=== PATIENT | female | born 1930 | race Caucasian/White ===

== ENCOUNTER 2016-10-21 14:00 | Outpatient (RCR) ==
[2016-07-04 20:32] VITALS: BMI 23.6
--- NOTE | 2016-10-08 14:21 | RS.OPPTEV2 ---
Date of Note: 10/08/16 Visit #: 1 Date of Evaluation: 10/08/16 Payer Source: MEDICARE Date of Onset/Injury/Change in Status: 08/25/16 Surgery Performed?: No Treatment Diagnosis: Gait abnormality History of Condition/Mechanism of Injury:: Pt states she is having loss of balance w/o known reason. This has been happening a couple months and she has fallen several times. Prior Level of Function.....Patient was independent with: ADL's, Self Care, Caregiving, Ambulation/Mobility, Community Integration/Access Functional Limitations: ADL's, Reaching, Pushing, Pulling, Lifting, Carrying, Sitting, Standing, Bending, Squatting, Ambulation, Community Access/Integration Medical History Medical History: Hypertension, CVA/TIA, Arthritis Medical History Comments:: Pt has had a R BILLY, osteoporosis, chronic kidney disease stage III, anemia, depresson, anxiety, low vit D Surgical History: Hip Replacement (Right 11/2014) Surgical History Comments:: Cholecystectomy Smoking Status: Former smoker Hx Home Medications: Dyzide, Lanoxin, Lopressor, Plavix, Vytorin, Aspirin, Osteo -Byflex, Norvasc Functional Outcome Measure Tinetti: 16 (43% disability) - G Codes & Severity Modifier G Codes & Modifier: Mobility: Eval - CK. Goal - CJ Source of G Code score: Tinetti Observation - Observation Inspection: Patient stands with hips and knees flexed bilaterally. Gait - Gait Pattern General Gait Pattern Observation: Weaving Gait, Wide Based Gait, Ataxic Gait, Crouched Gait, Decrease Stride Lngth (R), Decrease Stride Lngth (L) General Range of Motion: Bilateral hamstring length -15 degrees Sensation - Sensation Sensation Description: Pins & Evant (Bilateral feet radiating proximally to mid calves. Numbness to light touch of big toes bilaterlly and decreased discrimnation of bilateral plantar surface of her feet.) Balance - Standing Balance Static Standing Balance: Good Dynamic Standing Balance: Fair (SC is recommended for assistance to decrease falls.) Interventions - Exercise/Activities/Manual Therapy Exercises/Activities: NA Manual Therapy: NA - Charges Total Direct Minutes: 45 Total Treatment Time: 45 Procedures billed for this date of service:: PT Eval (Med) Assessment Assessment: Pt presents with decreased standing balance both static and dynamic and multiple gt deficits causing high fall risk. 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 Patient Education: Education of diagnosis, Body/Joint mechanics, Home Safety ( Recommended use of SC outside and shower chair during bathing.), Education of Plan of Care Short Term Goals Goal #1: Patient independent and compliant in basic HEP. Goal to be met by: 10/25/16 Goal #2: Bilateral hamstring length -10 Goal to be met by: 10/25/16 Goal #3: Tinetti score 19/28 to decrease fall risk. Goal to be met by: 10/25/16 Legal Practice Manager Goals Goal #1: Pt knows HEP & understands the need to continue exercises at home. Goal to be met by: 11/08/16 Goal #2: Score on Tinetti Assessment improved to 23 or more. Goal to be met by: 11/08/16 Goal #3: Patient to amb community distances, with good safety and min. deviations Goal to be met by: 11/08/16 Goal #4: Patient reports 25% improvement in confidence when walking. Goal to be met by: 11/08/16 Plan - Treatment to be Provided Procedures: Therapeutic Exercises, Therapeutic Activity, Gait Training, Neuromuscular Rehab, Manual Therapy, Patient Education Modalities: Hot Packs, No Modalities - Treatment Plan Frequency: 3 X week Duration: 4 weeks ORDER # VISITS AND/OR THROUGH DATE: 11/08/2016 - Treatment Code (1) Ataxia Comments: R27.0
--- NOTE | 2016-10-11 16:22 | RS.OPPTDN ---
Subjective Date of Note: 10/11/16 Visit #: 2 Date of Evaluation: 10/08/16 Payer Source: MEDICARE Treatment Diagnosis: Gait abnormality Current Subjective/complaints:: Patient denies any dizziness today. Says she carries a cane around just to have "something" to hold on to. Pain Assessment - Pain Description Pain Location: hips, buttocks, tail bone area Pain Description: muscle soreness Current Pain Intensity: not rated Interventions - Exercise/Activities/Manual Therapy Exercises/Activities: Begins with Passive gentle stretching to the bilateral heel cords, hamstrings, x 3. She begins general LE strengthening and trunk stability exercises of: pillow squeezes, isometric hip flexion/abd, SAQ 1 1/2# , DF with red tband, bridging. All 2/10 reps. Standing at railing: marching, heel raises, hip abd, and side stepping x 10. Total minutes of Exercise: 36 Manual Therapy: NA HOME EXERCISE PROGRAM: Ankle pumps,quad sets,SAQ,heelslides,SLR's,seated marching,recommended 2-3x/day.Hamstring stretches. - Charges Total Direct Minutes: 36 Total Treatment Time: 36 Procedures billed for this date of service:: ex2 Assessment: Patient presents with straight cane using only to drag at times. She demonstrates good standing bal, fair dynamic balance. She is able to alice all therex well. No LOB or unsteadiness noted with any rail exercise. Patient Education: Education of diagnosis, Body/Joint mechanics, Home Exercise Program, Home Safety, Activity Modification, Education of Plan of Care Short Term Goals Goal #1: Patient independent and compliant in basic HEP. Goal to be met by: 10/25/16 Goal #2: Bilateral hamstring length -10 Goal to be met by: 10/25/16 Goal #3: Tinetti score 19/28 to decrease fall risk. Goal to be met by: 10/25/16 Tie Puller Goals Goal #1: Pt knows HEP & understands the need to continue exercises at home. Goal to be met by: 11/08/16 Goal #2: Score on Tinetti Assessment improved to 23 or more. Goal to be met by: 11/08/16 Goal #3: Patient to amb community distances, with good safety and min. deviations Goal to be met by: 11/08/16 Goal #4: Patient reports 25% improvement in confidence when walking. Goal to be met by: 11/08/16 Plan PLAN OF CARE EXPIRES ON:: 11/08/16 ORDER # VISITS AND/OR THROUGH DATE: 11/08/2016 PLAN: Progress Exercises
--- NOTE | 2016-10-22 14:09 | RS.OPPTDN ---
Subjective Date of Note: 10/22/16 Visit #: 6 Date of Evaluation: 10/08/16 Payer Source: MEDICARE Treatment Diagnosis: Gait abnormality Current Subjective/complaints:: Patient states she is doing fine. Reports exercises seem to be helping her legs. Pain Assessment - Pain Description Pain Location: hips, buttocks, tail bone area Pain Description: muscle soreness Current Pain Intensity: not rated Interventions - Exercise/Activities/Manual Therapy Exercises/Activities: Begins with Passive gentle stretching to the bilateral heel cords, hamstrings, x 3. She continues with general LE strengthening and trunk stability exercises of: pillow squeezes, isometric hip flexion/abd, SAQ 1 1/2#, DF with red tband, pelvic tilts, bridging, alternate LE lift with 1# wand. All 10 reps. Sitting: red tband for scap retraction with therapy bar , 2# stick for bilateral shoulder flexion. All /10. Stationary bike x 5 mins with cues to rotate for/retro. Total minutes of Exercise: 38 Manual Therapy: NA HOME EXERCISE PROGRAM: Ankle pumps,quad sets,SAQ,heelslides,SLR's,seated marching,recommended 2-3x/day.Hamstring stretches. - Charges Total Direct Minutes: 38 Total Treatment Time: 38 Procedures billed for this date of service:: ex3 Assessment: Patient alice all therex well. She appears to be quite steady with using her sc. She drags it for the most part in the department. Patient Education: Education of diagnosis, Body/Joint mechanics, Home Exercise Program, Home Safety, Activity Modification, Education of Plan of Care Patient demonstrates compliance with HEP?: Yes Short Term Goals Goal #1: Patient independent and compliant in basic HEP. Goal to be met by: 10/25/16 Progress towards Goal:: Progressing Goal #2: Bilateral hamstring length -10 Goal to be met by: 10/25/16 Goal #3: Tinetti score to decrease fall risk. Goal to be met by: 10/25/16 Alf Goals Goal #1: Pt knows HEP & understands the need to continue exercises at home. Goal to be met by: 11/08/16 Goal #2: Score on Tinetti Assessment improved to 23 or more. Goal to be met by: 11/08/16 Goal #3: Patient to amb community distances, with good safety and min. deviations Goal to be met by: 11/08/16 Goal #4: Patient reports 25% improvement in confidence when walking. Goal to be met by: 11/08/16 Plan PLAN OF CARE EXPIRES ON:: 11/08/16 ORDER # VISITS AND/OR THROUGH DATE: 11/08/2016 PLAN: Progress Exercises
--- NOTE | 2016-10-22 14:20 | RS.OPPTDN ---
Subjective Date of Note: 10/18/16 Visit #: 5 Date of Evaluation: 10/08/16 Payer Source: MEDICARE Treatment Diagnosis: Gait abnormality Current Subjective/complaints:: Patient offers no c/o's. States she is performing some HEP. Reports no falls. Pain Assessment - Pain Description Pain Location: hips, buttocks, tail bone area Pain Description: muscle soreness Current Pain Intensity: not rated Interventions - Exercise/Activities/Manual Therapy Exercises/Activities: Begins with Passive gentle stretching to the bilateral heel cords, hamstrings, x 3. She begins general LE strengthening and trunk stability exercises of: pillow squeezes, isometric hip flexion/abd, SAQ 1 1/2# , DF with red tband, bridging, alternate LE/UE lift. All 2/10 reps. Sitting: red tband for scap retraction with therapy bar, 2# stick for bilateral shoulder flexion. All 2/10. Standing at railing: marching, heel raises, hip abd, and side stepping 2 x 10. Ambulating backwards 2x8 steps. Total minutes of Exercise: 42 Manual Therapy: NA HOME EXERCISE PROGRAM: Ankle pumps,quad sets,SAQ,heelslides,SLR's,seated marching,recommended 2-3x/day.Hamstring stretches. - Charges Total Direct Minutes: 42 Total Treatment Time: 42 Procedures billed for this date of service:: ex3 Assessment: Patient alice all standing and balance exercises without LOB. She is eager to continue progressing therex. Decreased general back and hip pain. Patient Education: Education of diagnosis, Body/Joint mechanics, Home Exercise Program, Home Safety, Activity Modification, Education of Plan of Care Patient demonstrates compliance with HEP?: Yes Short Term Goals Goal #1: Patient independent and compliant in basic HEP. Goal to be met by: 10/25/16 Progress towards Goal:: Progressing Goal #2: Bilateral hamstring length -10 Goal to be met by: 10/25/16 Progress towards Goal:: Progressing Goal #3: Tinetti score 19/28 to decrease fall risk. Goal to be met by: 10/25/16 Physical Education Instructor Goals Goal #1: Pt knows HEP & understands the need to continue exercises at home. Goal to be met by: 11/08/16 Goal #2: Score on Tinetti Assessment improved to 23 or more. Goal to be met by: 11/08/16 Goal #3: Patient to amb community distances, with good safety and min. deviations Goal to be met by: 11/08/16 Goal #4: Patient reports 25% improvement in confidence when walking. Goal to be met by: 11/08/16 Plan PLAN OF CARE EXPIRES ON:: 11/08/16 ORDER # VISITS AND/OR THROUGH DATE: 11/08/2016 PLAN: Progress Exercises
--- NOTE | 2016-10-22 14:27 | RS.OPPTDN ---
Subjective Date of Note: 10/16/16 Visit #: 4 Date of Evaluation: 10/08/16 Payer Source: MEDICARE Treatment Diagnosis: Gait abnormality Current Subjective/complaints:: Patient says she is doing well. REports no falls. She says she feels stronger and her knees are not as sore. Pain Assessment - Pain Description Pain Location: hips, buttocks, tail bone area Pain Description: muscle soreness Current Pain Intensity: not rated Interventions - Exercise/Activities/Manual Therapy Exercises/Activities: Begins with Passive gentle stretching to the bilateral heel cords, hamstrings, x 3. She begins general LE strengthening and trunk stability exercises of: pillow squeezes, isometric hip flexion/abd, SAQ 1 1/2# , DF with red tband, bridging. All 2/10 reps. Sitting: red tband for scap retraction with therapy bar, 2# stick for bilateral shoulder flexion. All 2/ 10. Standing at railing: marching, heel raises, hip abd, and side stepping x 10. Stationary bike x 3 mins. Cues for changing positions for/retro. Total minutes of Exercise: 38 Manual Therapy: NA HOME EXERCISE PROGRAM: Ankle pumps,quad sets,SAQ,heelslides,SLR's,seated marching,recommended 2-3x/day.Hamstring stretches. - Charges Total Direct Minutes: 38 Total Treatment Time: 38 Procedures billed for this date of service:: ex3 Assessment: Decreased pain to bilateral knees with therex. She appears to alice all well today with continued tightness to bilateral HS. Patient Education: Education of diagnosis, Body/Joint mechanics, Home Exercise Program, Home Safety, Activity Modification, Education of Plan of Care Short Term Goals Goal #1: Patient independent and compliant in basic HEP. Goal to be met by: 10/25/16 Goal #2: Bilateral hamstring length -10 Goal to be met by: 10/25/16 Goal #3: Tinetti score 19/28 to decrease fall risk. Goal to be met by: 10/25/16 Skilled Nursing Goals Goal #1: Pt knows HEP & understands the need to continue exercises at home. Goal to be met by: 11/08/16 Goal #2: Score on Tinetti Assessment improved to 23 or more. Goal to be met by: 11/08/16 Goal #3: Patient to amb community distances, with good safety and min. deviations Goal to be met by: 11/08/16 Goal #4: Patient reports 25% improvement in confidence when walking. Goal to be met by: 11/08/16 Plan PLAN OF CARE EXPIRES ON:: 11/08/16 ORDER # VISITS AND/OR THROUGH DATE: 11/08/2016 PLAN: Progress Exercises
--- NOTE | 2016-10-22 14:30 | RS.OPPTDN ---
Subjective Date of Note: 10/14/16 Visit #: 3 Date of Evaluation: 10/08/16 Payer Source: MEDICARE Treatment Diagnosis: Gait abnormality Current Subjective/complaints:: No c/o's. She says she does not have any difficulty with therex today. She hopes exercises will help her knees and hips. Says she mainly just drags her cane. Pain Assessment - Pain Description Pain Location: hips, buttocks, tail bone area Pain Description: muscle soreness Current Pain Intensity: not rated Interventions - Exercise/Activities/Manual Therapy Exercises/Activities: Begins with Passive gentle stretching to the bilateral heel cords, hamstrings, x 3. She begins general LE strengthening and trunk stability exercises of: pillow squeezes, isometric hip flexion/abd, SAQ 1 1/2# , DF with red tband, bridging. All 2/10 reps. Standing at railing: marching, heel raises, hip abd. Total minutes of Exercise: 38 Manual Therapy: NA HOME EXERCISE PROGRAM: Ankle pumps,quad sets,SAQ,heelslides,SLR's,seated marching,recommended 2-3x/day.Hamstring stretches. - Charges Total Direct Minutes: 38 Total Treatment Time: 38 Procedures billed for this date of service:: ex3 Patient Education: Education of diagnosis, Body/Joint mechanics, Home Exercise Program, Home Safety, Activity Modification, Education of Plan of Care Short Term Goals Goal #1: Patient independent and compliant in basic HEP. Goal to be met by: 10/25/16 Progress towards Goal:: Progressing Goal #2: Bilateral hamstring length -10 Goal to be met by: 10/25/16 Goal #3: Tinetti score 19/28 to decrease fall risk. Goal to be met by: 10/25/16 [facility] Goals Goal #1: Pt knows HEP & understands the need to continue exercises at home. Goal to be met by: 11/08/16 Goal #2: Score on Tinetti Assessment improved to 23 or more. Goal to be met by: 11/08/16 Goal #3: Patient to amb community distances, with good safety and min. deviations Goal to be met by: 11/08/16 Goal #4: Patient reports 25% improvement in confidence when walking. Goal to be met by: 11/08/16 Plan PLAN OF CARE EXPIRES ON:: 11/08/16 ORDER # VISITS AND/OR THROUGH DATE: 11/08/2016 PLAN: Continue Plan of Care
== END 2016-10-22 ==
PROVIDERS: ATTEND Family Medicine
DX: R26.9 Unspecified abnormalities of gait and mobility (principal)

== ENCOUNTER 2016-10-30 14:00 | Outpatient (RCR) ==
[2016-07-04 20:32] VITALS: BMI 23.6
--- NOTE | 2016-10-23 16:35 | RS.OPPTDN ---
Subjective Date of Note: 10/23/16 Visit #: 7 Date of Evaluation: 10/08/16 Payer Source: MEDICARE Treatment Diagnosis: Gait abnormality Current Subjective/complaints:: Patient says she no longer has the tingling into her legs and feet like she had before starting therapy. She says the knee soreness is also much better. Pain Assessment - Pain Description Pain Location: Very little soreness to the knees Pain Description: joints in general Current Pain Intensity: not rated Interventions - Exercise/Activities/Manual Therapy Exercises/Activities: Continues to receive Passive gentle stretching to the bilateral heel cords, hamstrings, x 3. She begins general LE strengthening and trunk stability exercises of: pillow squeezes, isometric hip flexion/abd, SAQ 1 1/2#, DF with red tband, bridging, Alternate LE lift 2 1/2# each, hip abd in hooklying with red tband. All 2/10 reps. Sitting: Red tband for scapular retraction 2/10, shoulder shrugs x 10. Stationary bike x 6 mins for/retro. Total minutes of Exercise: 38 Manual Therapy: NA HOME EXERCISE PROGRAM: Ankle pumps,quad sets,SAQ,heelslides,SLR's,seated marching,recommended 2-3x/day.Hamstring stretches. - Charges Total Direct Minutes: 38 Total Treatment Time: 38 Procedures billed for this date of service:: ex3 Assessment: Patient has decreased pain to bilateral knees and decreased tingling and numbness to bilateral LE's extending to the feet. She demonstrates good balance with all standing therex. No falls to date since Eval. Patient Education: Education of diagnosis, Body/Joint mechanics, Home Exercise Program, Home Safety, Activity Modification, Education of Plan of Care Patient demonstrates compliance with HEP?: Yes Short Term Goals Goal #1: Patient independent and compliant in basic HEP. Goal to be met by: 10/25/16 Progress towards Goal:: Progressing Goal #2: Bilateral hamstring length -10 Goal to be met by: 10/25/16 Progress towards Goal:: Progressing Goal #3: Tinetti score 19/28 to decrease fall risk. Goal to be met by: 10/25/16 [employer] Plant Construction Worker Goals Goal #1: Pt knows HEP & understands the need to continue exercises at home. Goal to be met by: 11/08/16 Goal #2: Score on Tinetti Assessment improved to 23 or more. Goal to be met by: 11/08/16 Goal #3: Patient to amb community distances, with good safety and min. deviations Goal to be met by: 11/08/16 Goal #4: Patient reports 25% improvement in confidence when walking. Goal to be met by: 11/08/16 Plan PLAN OF CARE EXPIRES ON:: 11/08/16 ORDER # VISITS AND/OR THROUGH DATE: 11/08/2016 PLAN: Progress Exercises (x 3 more sessions)
--- NOTE | 2016-10-28 15:20 | RS.OPPTDN ---
Subjective Date of Note: 10/25/16 Visit #: 8 Date of Evaluation: 10/08/16 Payer Source: MEDICARE Treatment Diagnosis: Gait abnormality Current Subjective/complaints:: Patient says she is doing better with balance and knee pain. Pain Assessment - Pain Description Pain Location: Very little soreness to the knees Pain Description: joints in general Current Pain Intensity: not rated Interventions - Exercise/Activities/Manual Therapy Exercises/Activities: Continues to receive Passive gentle stretching to the bilateral heel cords, hamstrings, x 3. She begins general LE strengthening and trunk stability exercises of: pillow squeezes, isometric hip flexion/abd, SAQ 1 1/2#, DF with red tband, bridging, Alternate LE lift 2 1/2# each, hip abd in hooklying with red tband. All 2/10 reps. Sitting: Red tband for scapular retraction 2/10, 1# wand for bilateral shoulder flexion, shoulder shrugs x 10. Stationary bike x 6 mins for/retro. At railing: side stepping, backwards walking, marching and heel raises x 10. Total minutes of Exercise: 45 Manual Therapy: NA HOME EXERCISE PROGRAM: Ankle pumps,quad sets,SAQ,heelslides,SLR's,seated marching,recommended 2-3x/day.Hamstring stretches. - Charges Total Direct Minutes: 45 Total Treatment Time: 45 Procedures billed for this date of service:: ex3 Assessment: Patient progressing well with all therex. Bal maintained throughout standing therex, but ambulated out of the department with slight unsteadiness. Patient Education: Education of diagnosis, Body/Joint mechanics, Home Exercise Program, Home Safety, Activity Modification, Education of Plan of Care Patient demonstrates compliance with HEP?: Yes Short Term Goals Goal #1: Patient independent and compliant in basic HEP. Goal to be met by: 10/25/16 Progress towards Goal:: Progressing Goal #2: Bilateral hamstring length -10 Goal to be met by: 10/25/16 Progress towards Goal:: Progressing Goal #3: Tinetti score 19/28 to decrease fall risk. Goal to be met by: 10/25/16 [facility] Goals Goal #1: Pt knows HEP & understands the need to continue exercises at home. Goal to be met by: 11/08/16 Goal #2: Score on Tinetti Assessment improved to 23 or more. Goal to be met by: 11/08/16 Goal #3: Patient to amb community distances, with good safety and min. deviations Goal to be met by: 11/08/16 Goal #4: Patient reports 25% improvement in confidence when walking. Goal to be met by: 11/08/16 Plan PLAN OF CARE EXPIRES ON:: 11/08/16 ORDER # VISITS AND/OR THROUGH DATE: 11/08/2016 PLAN: Progress Exercises
--- NOTE | 2016-10-30 15:55 | RS.OPPTDN ---
Subjective Date of Note: 10/28/16 Visit #: 9 Date of Evaluation: 10/08/16 Payer Source: MEDICARE Treatment Diagnosis: Gait abnormality Current Subjective/complaints:: Patient says her feet and knees are feeling better. Pain Assessment - Pain Description Pain Location: Very little soreness to the knees Pain Description: joints in general Current Pain Intensity: not rated Interventions - Exercise/Activities/Manual Therapy Exercises/Activities: Continues to receive Passive gentle stretching to the bilateral heel cords, hamstrings, x 3. She begins general LE strengthening and trunk stability exercises of: pillow squeezes, isometric hip flexion/abd, SAQ 1 1/2#, DF with red tband, bridging, Alternate LE lift 2 1/2# each, hip abd in hooklying with red tband. All 2/10 reps. Sitting: Red tband for scapular retraction 10/04, 1# wand for bilateral shoulder flexion, shoulder shrugs x 10. Stationary bike x 6 mins for/retro. At railing: side stepping, backwards walking, marching and heel raises x 10. Total minutes of Exercise: 40 Manual Therapy: NA HOME EXERCISE PROGRAM: Ankle pumps,quad sets,SAQ,heelslides,SLR's,seated marching,recommended 2-3x/day.Hamstring stretches. - Charges Total Direct Minutes: 40 Total Treatment Time: 40 Procedures billed for this date of service:: ex3 Assessment: Patient progressing with all therex showing improved bal and pain to knees and feet (sensation). Patient Education: Education of diagnosis, Body/Joint mechanics, Home Exercise Program, Home Safety, Activity Modification, Education of Plan of Care Patient demonstrates compliance with HEP?: Yes Short Term Goals Goal #1: Patient independent and compliant in basic HEP. Goal to be met by: 10/25/16 Progress towards Goal:: Progressing Goal #2: Bilateral hamstring length -10 Goal to be met by: 10/25/16 Progress towards Goal:: Progressing Goal #3: Tinetti score 19/28 to decrease fall risk. Goal to be met by: 10/25/16 [facility] Goals Goal #1: Pt knows HEP & understands the need to continue exercises at home. Goal to be met by: 11/08/16 Goal #2: Score on Tinetti Assessment improved to 23 or more. Goal to be met by: 11/08/16 Goal #3: Patient to amb community distances, with good safety and min. deviations Goal to be met by: 11/08/16 Goal #4: Patient reports 25% improvement in confidence when walking. Goal to be met by: 11/08/16 Plan PLAN OF CARE EXPIRES ON:: 11/08/16 ORDER # VISITS AND/OR THROUGH DATE: 11/08/2016 PLAN: Progress Exercises (attend one more session per order)
--- NOTE | 2016-10-30 16:08 | RS.OPPTDN ---
Subjective Date of Note: 10/30/16 Visit #: 10 Date of Evaluation: 10/08/16 Payer Source: MEDICARE Treatment Diagnosis: Gait abnormality Current Subjective/complaints:: Patient says she has not had any back pain in the past few sessions. She says she is pleased at how well she has done in therapy. She says she performs some HEP and it is easier than when she first began. Pain Assessment - Pain Description Pain Location: None to the back or knees today. Improved sensation to the feet. Pain Description: joints in general Current Pain Intensity: not rated Interventions - Exercise/Activities/Manual Therapy Exercises/Activities: Continues to receive Passive gentle stretching to the bilateral heel cords, hamstrings, x 3. She begins general LE strengthening and trunk stability exercises of: pillow squeezes, isometric hip flexion/abd, SAQ 1 1/2#, DF with red tband, bridging, Alternate LE lift 2 1/2# each, hip abd in hooklying with red tband. All 2/10 reps. Sitting: Red tband for scapular retraction 2/10, 1# wand for bilateral shoulder flexion, shoulder shrugs x 10. Performed Tinetti's Assessment. Total minutes of Exercise: 40 Manual Therapy: NA HOME EXERCISE PROGRAM: Ankle pumps,quad sets,SAQ,heelslides,SLR's,seated marching,recommended 2-3x/day.Hamstring stretches. - Objective Findings Observations,measurements,etc.: 20/28 or 29% impairment for Tinetti compared to 16/28 or 43% at eval - Charges Total Direct Minutes: 40 Total Treatment Time: 40 Procedures billed for this date of service:: ex3 Assessment: Improved Tinetti's score, self reports of improvement with back and knee pain as well as sensation to both feet. She does not appear to "depend" on her cane, just drags or uses very seldomly on uneven terrain or outside. She is performing light yard work without the cane as well. Patient Education: Education of diagnosis, Body/Joint mechanics, Home Exercise Program, Home Safety, Activity Modification, Education of Plan of Care Patient demonstrates compliance with HEP?: Yes Short Term Goals Goal #1: Patient independent and compliant in basic HEP. Goal to be met by: 10/25/16 Progress towards Goal:: Met Goal #2: Bilateral hamstring length -10 Goal to be met by: 10/25/16 Progress towards Goal:: Met Goal #3: Tinetti score to decrease fall risk. Goal to be met by: 10/25/16 Progress towards Goal:: Met () Assisted Goals Goal #1: Pt knows HEP & understands the need to continue exercises at home. Goal to be met by: 11/08/16 Progress towards goal: Met Goal #2: Score on Tinetti Assessment improved to 23 or more. Goal to be met by: 11/08/16 Progress towards goal: Progressing Goal #3: Patient to amb community distances, with good safety and min. deviations Goal to be met by: 11/08/16 Progress towards goal: Met Goal #4: Patient reports 25% improvement in confidence when walking. Goal to be met by: 11/08/16 Progress towards goal: Met Plan PLAN OF CARE EXPIRES ON:: 11/08/16 ORDER # VISITS AND/OR THROUGH DATE: 11/08/2016 PLAN: Plan for Discharge
--- NOTE | 2016-10-31 09:05 | RS.OPPTDC ---
Date of Discharge: 10/30/16 Date of Evaluation: 10/08/16 Number of Visits: 10 Treatment Diagnosis: Gait abnormality Current Complaints/Gains: Patient reports being pleased with her progress. She requests D/C to perform HEP on her own. Pain Assessment - Pain Description Pain Location: None to the back or knees today. Improved sensation to the feet. Pain Description: joints in general Current Pain Intensity: not rated Functional Outcome Measure Tinetti: 20 - G Codes & Severity Modifier G Codes & Modifier: Mobility, Moving & Walking Around: Goal - CJ. D/C - CJ Source of G Code score: Tinetti Balance & Gait Assessment Interventions - Exercise/Activities/Manual Therapy Exercises/Activities: NA Manual Therapy: NA - Charges Total Direct Minutes: na Total Treatment Time: na Procedures billed for this date of service:: na Assessment Assessment: Pt made excellent progress and back pain completely resolved as well as reported return of sensation. Short Term Goals Goal #1: Patient independent and compliant in basic HEP. Goal to be met by: 10/25/16 Progress towards Goal:: Met Goal #2: Bilateral hamstring length -10 Goal to be met by: 10/25/16 Progress towards Goal:: Met Goal #3: Tinetti score 19/28 to decrease fall risk. Goal to be met by: 10/25/16 Progress towards Goal:: Met () Stapler Coil Unit Goals Goal #1: Pt knows HEP & understands the need to continue exercises at home. Goal to be met by: 11/08/16 Progress towards goal: Met Goal #2: Score on Tinetti Assessment improved to 23 or more. Goal to be met by: 11/08/16 Progress towards goal: Progressing Goal #3: Patient to amb community distances, with good safety and min. deviations Goal to be met by: 11/08/16 Progress towards goal: Met Goal #4: Patient reports 25% improvement in confidence when walking. Goal to be met by: 11/08/16 Progress towards goal: Met Plan Reason for Discharge:: Self-Discharge (Pt chose to stop PT at this time due to lack of progress.)
== END 2016-11-22 ==
PROVIDERS: ATTEND Family Medicine
DX: R26.9 Unspecified abnormalities of gait and mobility (principal)

== ENCOUNTER 2017-05-26 07:52 | Day surgery (SDC) | payer OTHER ==
[2016-07-04 20:32] VITALS: BMI 23.6
[2017-05-26] MEDS ORDERED: VERSED ONE (09:55)
[2017-05-26] MEDS ORDERED: DIPRIVAN 20 ML VIAL IVP ONE (09:55)
[2017-05-26 15:16] VITALS: BP 141/61; TEMP 97.8
--- NOTE | 2017-05-27 12:51 | OP ---
PROCEDURE: EGD (ESOPHAGOGASTRODUODENOSCOPY) WITH SALINAS DILATATION. ENDOSCOPIST: Arelis CUMMINS M.D. INDICATION: DYSPHAGIA. INSTRUMENT: GIFH-190. MEDICATION: PER ANESTHESIA. PROCEDURE: The patient was positioned for endoscopy. The oropharynx was sprayed with Cetacaine spray and the endoscope was advanced through the bite block into the esophagus and from there advanced to the duodenum. The duodenum is normal and pylorus is patent. The antrum reveals some mild gastritis. Retroflex exam was otherwise normal. The esophagus was essentially normal. Mild distal esophageal ring. The scope was withdrawn and a 44 [place] was passed without difficulty. The patient tolerated the procedure without immediate complication. PLAN: 1. Repeat as needed. MTDD
--- NOTE | 2017-05-27 12:54 | OP ---
PROCEDURE: COLONOSCOPY TO THE CECUM. ENDOSCOPIST: Arelis CUMMINS M.D. INDICATION: ANEMIA INSTRUMENT: PCFH-190. MEDICATION: PER ANESTHESIA. PROCEDURE: The patient was positioned for colonoscopy. The digital rectal exam was negative. The colonoscope was inserted through the anus and advanced to the cecum. The cecum was identified using the ileocecal valve and the appendiceal orifice as landmarks. The scope was slowly withdrawn through an adequately prepped colon. Careful inspection was made of each colonic segment as the scope is withdrawn in a circumferential fashion. Care was taken to inspect the proximal side of the ileocecal valve, haustral folds, flexures and rectal valves. No evidence for inflammatory change, polyp or mass. A few diverticula are noted. Retroflex exam was otherwise negative. The patient tolerated the procedure well without immediate complication. Withdrawal time 6 minutes and 28 seconds. PLAN: 1. Suggest repeat colonoscopy as needed. MTDMarquise
== END 2017-05-26 11:25 | disposition home or self-care (01) ==
LOC: SURG 07:52
PROVIDERS: ATTEND Internal Medicine Gastroenterology
DX: D64.9 Anemia, unspecified (principal); R13.10 Dysphagia, unspecified; K57.30 Diverticulosis of large intestine without perforation or abscess without bleeding; K29.70 Gastritis, unspecified, without bleeding; K22.2 Esophageal obstruction

== ENCOUNTER 2017-10-12 22:54 | Outpatient (CLI) ==
[2017-10-12 23:21] VITALS: BMI 23.3
== END 2017-10-12 22:55 | disposition left against medical advice (07) ==
LOC: AMBL 22:54
PROVIDERS: ATTEND Internal Medicine Geriatric Medicine
DX: R06.02 Shortness of breath (principal); J44.9 Chronic obstructive pulmonary disease, unspecified

== ENCOUNTER 2017-10-12 23:07 | Emergency (ER) ==
[2017-10-12 23:21] VITALS: BP 131/73; TEMP 98.9; BMI 23.3
[2017-10-12] MEDS ORDERED: DUONEB NEB STA (23:45)
[2017-10-12] MEDS ORDERED: SOLU-MEDROL 125 MG IVP STA (23:45)
--- NOTE | 2017-10-12 23:46 | ED.PDOC ---
General ED Provider: Dr. MIKE ALLEN Chief Complaint: Shortness of Air Stated Complaint: Patient states she has been feeling short of breath for the last 3 days. His is unusual for her despite having a history of COPD per her physiciain. Denies any cough or chest pain. She states she gets worn our after talking for a while and if she walks only few steps. Time Seen by Physician: 23:43 Mode of Arrival: Walk-In Information Source: Patient Exam Limitations: No limitations Primary Care Provider: YEIMY ROTH Nursing and Triage Documentation Reviewed and Agree: Yes Reviewed sepsis parameters & appropriate labs ordered?: No System Inflammatory Response Syndrome: Not Applicable Sepsis Protocol: For patient's 13 years and over: Temp is 96.8 and below OR 101 and greater Pulse >90 BPM Resp >20/minute Acutely Altered Mental Status Are patient's symptoms suggestive of a new infection, such as: -Pneumonia -Skin, Soft Tissue -Endocarditis -UTI -Bone, Joint Infection -Implantable Device -Acute Abdominal Infection -Wound Infection -Meningitis -Blood Stream Catheter Infection -Unknown System Inflammatory Response Syndrome: Not Applicable Review of Systems - Review Of Systems Constitutional: Reports: No symptoms Eyes: Reports: No symptoms Ears, Nose, Mouth, Throat: Reports: No symptoms Respiratory: Reports: Short of air Cardiac: Reports: No symptoms GI: Reports: No symptoms : Reports: No symptoms Musculoskeletal: Reports: No symptoms Skin: Reports: No symptoms Neurological: Reports: Anxiety Endocrine: Reports: No symptoms Hematologic/Lymphatic: Reports: No symptoms All Other Systems: Reviewed and Negative Past Medical History - Past Medical History Previously Healthy: Yes Endocrine: Reports: Hypothyroid Cardiovascular: Reports: Hypertension Respiratory: Reports: COPD Hematological: Reports: None Gastrointestinal: Reports: None Genitourinary: Reports: None Neuro/Psych: Reports: None Musculoskeletal: Reports: Arthritis Cancer: Reports: None Last Menstrual Period: post menopausal - Surgical History General Surgical History: Reports: Appendectomy, Cholecystectomy, Orthopedic ( hip replacement in 2015 , Carpal Tunnel both wrist ), Unknown - Family History Family History: Reports: Unknown - Social History Smoking Status: Former smoker Hx Substance Use: No Alcohol Screening: None - Immunizations Tetanus Shot up to Date: No (unsure) Physical Exam - Physical Exam Appearance: Ill-appearing, Thin Ill-appearing: Mild Neck: Supple Respiratory: Breath sounds diminished Cardiovascular: RRR, Pulses normal, No rub, No murmur GI/: Soft, Nontender, No masses, Bowel sounds normal, No Organomegaly Musculoskeletal: Normal strength, ROM intact, No edema, No calf tenderness Skin: Warm, Dry, Normal color Neurological: Sensation intact, Motor intact, Reflexes intact, Cranial nerves intact, Alert, Oriented Psychiatric: Anxious Interpretation - Radiology Interpretation Radiology Interpretation By: ED Physician Radiology Results: Negative Exam Interpreted: Portable CXR Radiology Interpretation By: Radiologist Radiology Results: Positive Exam Interpreted: CT Scan (Pulmonary embolus Multi lobar Bilateral. ) - EKG Interpretation Time of EKG #1: 00:32 Rate: Normal Rhythm: Sinus Ectopy: None [place]: NL Interpretation: non specific st-t changes. Critical Care Note - Critical Care Note Total Time (mins): 40 Course - Course Hematology/Chemistry: 10/12/17 23:50 10/12/17 23:50 Orders, Labs, Meds: Lab Review 10/12/17 10/12/17 10/12/17 23:42 23:50 23:50 WBC 12.32 H RBC 3.97 L Hgb 12.5 Hct 36.7 L MCV 92.4 MCH 31.5 H MCHC 34.1 RDW Coeff of Lori 12.7 Plt Count 262 Immature Gran % (Auto) 0.2 Neut % (Auto) 66.2 Lymph % (Auto) 22.8 Martin % (Auto) 8.5 Eos % (Auto) 2.0 Baso % (Auto) 0.3 Immature Gran # (Auto) 0.0 Neut # 8.1 H Lymph # 2.8 Martin # 1.1 Eos # 0.3 Baso # 0.0 D-Dimer (Manual) Puncture Site Rr O2 Saturation 97.0 ABG pH 7.549 H* ABG pCO2 25.2 L ABG pO2 72.0 L ABG HCO3 22 ABG Total CO2 23 ABG Base Excess 0 Goyo Test + FiO2 % 21.0 Sodium 137 Potassium 3.9 Chloride 103 Carbon Dioxide 21 L Anion Gap 16.9 BUN 20 H Creatinine 0.98 Estimated GFR (MDRD) 54.00 BUN/Creatinine Ratio 20.40 Glucose 108 Lactic Acid Calcium 10.2 Total Bilirubin 0.6 AST 19 ALT 15 Alkaline Phosphatase 92 Total Creatine Kinase 104 Troponin I 0.0890 B-Natriuretic Peptide Total Protein 7.9 Albumin 3.7 Globulin 4.2 Albumin/Globulin Ratio 0.88 Procalcitonin 10/12/17 10/12/17 10/12/17 23:50 23:50 23:50 WBC RBC Hgb Hct MCV MCH MCHC RDW Coeff of Lori Plt Count Immature Gran % (Auto) Neut % (Auto) Lymph % (Auto) Martin % (Auto) Eos % (Auto) Baso % (Auto) Immature Gran # (Auto) Neut # Lymph # Martin # Eos # Baso # D-Dimer (Manual) Puncture Site O2 Saturation ABG pH ABG pCO2 ABG pO2 ABG HCO3 ABG Total CO2 ABG Base Excess Goyo Test FiO2 % Sodium Potassium Chloride Carbon Dioxide Anion Gap BUN Creatinine Estimated GFR (MDRD) BUN/Creatinine Ratio Glucose Lactic Acid 10.4 Calcium Total Bilirubin AST ALT Alkaline Phosphatase Total Creatine Kinase Troponin I B-Natriuretic Peptide 81 Total Protein Albumin Globulin Albumin/Globulin Ratio Procalcitonin < 0.05 10/12/17 23:50 WBC RBC Hgb Hct MCV MCH MCHC RDW Coeff of Lori Plt Count Immature Gran % (Auto) Neut % (Auto) Lymph % (Auto) Martin % (Auto) Eos % (Auto) Baso % (Auto) Immature Gran # (Auto) Neut # Lymph # Martin # Eos # Baso # D-Dimer (Manual) 5423.31 Puncture Site O2 Saturation ABG pH ABG pCO2 ABG pO2 ABG HCO3 ABG Total CO2 ABG Base Excess Goyo Test FiO2 % Sodium Potassium Chloride Carbon Dioxide Anion Gap BUN Creatinine Estimated GFR (MDRD) BUN/Creatinine Ratio Glucose Lactic Acid Calcium Total Bilirubin AST ALT Alkaline Phosphatase Total Creatine Kinase Troponin I B-Natriuretic Peptide Total Protein Albumin Globulin Albumin/Globulin Ratio Procalcitonin Orders Category Date Time Status ABG DRAW REQUEST Stat CARDIO 10/12/17 23:43 Completed EKG-(ED ONLY) Stat CARDIO 10/12/17 23:33 Completed NEBULIZER TREATMENT Stat CARDIO 10/12/17 23:45 Completed NPO REMINDER: IMAGING ONCE CARE 10/13/17 00:56 Completed ED IV/MEDIPORT/POWERPORT .ONCE EMERGENCY 10/12/17 23:45 Active OXYGEN [ED APPLY O2] .ONCE EMERGENCY 10/13/17 02:17 Active ABG Stat LAB 10/12/17 23:42 Completed BLOOD CULTURE Stat LAB 10/12/17 23:50 Results BNP [B-TYPE NATRIURETIC PEPTIDE] Stat LAB 10/12/17 23:50 Completed CBC W/ AUTO DIFF Stat LAB 10/12/17 23:50 Completed COMPREHENSIVE METABOLIC PANEL Stat LAB 10/12/17 23:50 Completed CREATINE KINASE Stat LAB 10/12/17 23:50 Completed D-DIMER Stat LAB 10/12/17 23:50 Completed LACTIC ACID Stat LAB 10/12/17 23:50 Completed PROCALCITONIN Stat LAB 10/12/17 23:50 Completed TROPONIN I Stat LAB 10/12/17 23:50 Completed 0.9 % Sodium Chloride [Saline Flush] MEDS 10/12/17 23:45 Discontinued 1 syr IVF PRN PRN Enoxaparin Sodium [Lovenox] MEDS 10/13/17 01:45 Discontinued 65 mg SUBCUT ONCE STA Ipratropium/Albuterol Neb [Duoneb] MEDS 10/12/17 23:45 Discontinued 1 vial NEB ONCE STA Methylprednisolone Sod Succ/Pf [Solu-Medrol 125 mg] MEDS 10/12/17 23:45 Discontinued 125 mg IVP ONCE STA Sodium Chloride 0.9% [Sodium Chloride] 1,000 ml MEDS 10/13/17 01:07 Discontinued IV BOLUS CHEST, 1V AP ONLY Stat RADS 10/12/17 23:[address] CHEST PE PROTOCOL Stat RADS 10/13/17 00:56 Completed Medications Discontinued Medications Generic Name Dose Route Start Last Admin Trade Name Freq PRN Reason Stop Dose Admin Albuterol/Ipratropium 1 vial 10/12/17 23:45 10/13/17 00:50 Duoneb NEB 10/12/17 23:46 1 vial ONCE STA Administration Enoxaparin Sodium 65 mg 10/13/17 01:45 10/13/17 01:58 Lovenox SUBCUT 10/13/17 01:46 65 mg ONCE STA Administration Sodium Chloride 1,000 mls @ 1,000 mls/hr 10/13/17 01:07 10/13/17 02:03 Sodium Chloride IV 10/13/17 02:06 1,000 mls/hr BOLUS STA Administration Methylprednisolone Sodium Succinate 125 mg 10/12/17 23:45 10/13/17 00:10 Solu-Medrol 125 Mg IVP 10/12/17 23:46 125 mg ONCE STA Administration Sodium Chloride 1 syr 10/12/17 23:45 10/13/17 00:11 Saline Flush IVF 1 syr PRN PRN Administration To flush IV Vital Signs: Temp Pulse Resp BP Pulse Ox 10/12/17 23:07 98.9 F 83 18 131/73 90 L Departure - Departure Time of Disposition: 01:46 Disposition: TSF SHORT-TRM HOSP Discharge Problem: Pulmonary embolism Qualifiers: Pulmonary embolism type: other Chronicity: acute Acute cor pulmonale presence: without acute cor pulmonale Qualified Code(s): I26.99 - Other pulmonary embolism without acute cor pulmonale Condition: Stable Pt referred to PMD for follow-up: Yes IPMP verified?: No Allergies/Adverse Reactions: Allergies No Known Allergies Allergy (Verified 10/13/17 04:33) Home Medications: Ambulatory Orders Digoxin [Lanoxin] 250 mcg PO DAILY 02/23/14 Metoprolol Tartrate [Lopressor] 50 mg PO BID 02/23/14 Multivitamin 1 cap PO DAILY 02/23/14 [place]-3 Fatty Acids/Fish Oil [Fish Oil 1,000 mg Softgel] 1 each PO TID 02/23/14 Polyethylene Glycol 3350 [Miralax] 17 gm PO DAILY 02/23/14 Triamterene/Hydrochlorothiazid [Dyazide] 1 cap PO DAILY 02/23/14 Vits A,C,E/Lutein/Minerals [Vision Vitamins Tablet] 1 tab PO TID 08/16/14 Aspirin [Aspirin EC] 325 mg PO DAILYWM 12/25/14 Albuterol Sulfate [Proair Hfa] 2 puff IH QID PRN 12/28/14 Amlodipine Besylate [Norvasc] 5 mg PO BID 09/20/15 Clopidogrel Bisulfate [Plavix] 75 mg PO DAILY 09/20/15 Budesonide/Formoterol Fumarate [Symbicort 160-4.5 Mcg Inhaler] 2 puff IH BID 07/10 Losartan Potassium [Cozaar] 50 mg PO DAILY 07/09/16 Tramadol HCl [Ultram] 50 mg PO TID 10/13/17
[2017-10-13] MEDS ORDERED: SODIUM CHLORIDE 1,000 ML IV STA (01:07)
[2017-10-13] MEDS ORDERED: LOVENOX SUBCUT STA (01:45)
--- NOTE | 2017-10-13 01:51 | CT ---
Exam: CT angiography of the chest History: Elevated D-dimer which shortness of breath Technique: [address] of the chest utilizing CT angiography protocol. Multiplanar and thr ee-dimensional reformations were performed. FINDINGS: The exam is technically adequate for evaluation of pulmonary arteries and aorta. Filling defects noted in the right and left upper and lower lobe pulmonary artery segments. No defects of th e right and left main pulmonary arteries. Basilar atelectasis on the right. No pulmonary parenchymal abnormalities otherwise. Atherosclerotic calcification of the aorta without aneurysm or dissection. Maximum ascending thoracic diameter of 3.6 cm. No pathologic lymph node enlargement mediastinum. No acute chest wall abnormalities. No acute findings of the upper abdomen. Impression: 1. Critical result: Bilateral multilobar pulmonary artery thrombus. Generally large thrombus burde n. The right and left main pulmonary arteries are excluded. Question some degree of bulging of the r ight heart border could indicate early right heart strain. 2. No acute findings of the chest otherwise. Discussed with ordering physician at 0146 hours Central time.
--- NOTE | 2017-10-13 04:23 | DI ---
EXAM: Chest, single view 10/12/2017 HISTORY: Shortness of breath COMPARISON: 10/13/2017 FINDINGS / IMPRESSION: The heart size within normal limits. No pulmonary consolidation, effusion or pneumothorax. Subsequent CT chest 10/13/2017 shows extensive bilateral pulmonary emboli.
== END 2017-10-13 04:30 | disposition short-term general hospital (02) ==
LOC: ED 23:07
DX: I26.99 Other pulmonary embolism without acute cor pulmonale (principal); R06.02 Shortness of breath; J44.9 Chronic obstructive pulmonary disease, unspecified; I10 Essential (primary) hypertension; E03.9 Hypothyroidism, unspecified; Z79.899 Other long term (current) drug therapy
CPT/HCPCS: 36415; 80053; 82550; 82803; 83605; 83880; 84145; 84484; 85025; 85379; 87040; 93005; 93010; 94640; 96361; 96372; 96374; 99285

== ENCOUNTER 2018-04-17 11:30 | Outpatient (CLI) | payer OTHER | END 2018-04-17 11:50 | disposition short-term general hospital (02) | LOC: AMBL 11:30 | PROVIDERS: ATTEND Internal Medicine | DX: Z96.642 Presence of left artificial hip joint (principal); Z98.890 Other specified postprocedural states ==

== ENCOUNTER 2018-07-08 09:46 | Outpatient (CLI) ==
--- NOTE | 2018-07-08 11:10 | DEXA ---
EXAM: Bone Densitometry DEXA HISTORY: Postmenopausal COMPARISON: None FINDINGS: DEXA scan of the lumbar spine was performed. Quality of the study is good. Bone mineral density is 1 .000 grams per square centimeter. T-score is negative 1.5. Z-score is 0.4. IMPRESSION: Lumbar spine: Osteopenia. Reference Values according to World Health Organization criteria: T score greater than -1 is normal T score -1 to -2.5 is osteopenia T score less than -2.5 is osteoporosis.
--- NOTE | 2018-07-08 11:40 | MAMMO ---
EXAM: Bilateral digital screening mammogram (2-D and 3-D) History: Screening Comparison: Bilateral mammogram 10/06/2015 Findings: MLO and CC views of bilateral breasts demonstrate scattered fibroglandular breast parenchym a. CAD was reviewed by the radiologist. Tomosynthesis was performed. Stable benign bilateral vascu lar calcifications. There are no dominant masses, no suspicious microcalcifications and no commercial green retrofit architect ural distortions Impression: Benign stable mammogram. Recommend followup routine screening mammography in 1 year. BIRADS 2
== END 2018-07-08 09:47 | disposition home or self-care (01) ==
LOC: RAD 09:46
PROVIDERS: ATTEND Family Medicine
DX: Z12.31 Encounter for screening mammogram for malignant neoplasm of breast (principal); Z78.0 Asymptomatic menopausal state; M85.9 Disorder of bone density and structure, unspecified; Z91.89 Other specified personal risk factors, not elsewhere classified; M85.80 Other specified disorders of bone density and structure, unspecified site

== ENCOUNTER 2018-08-28 10:04 | Outpatient (CLI) ==
[2018-08-28 10:21] VITALS: BP 149/65; TEMP 96.5
[2018-08-28] MEDS ORDERED: PROLIA SUBCUT STA (10:27)
== END 2018-08-28 10:30 | disposition home or self-care (01) ==
LOC: OPMED 10:04
PROVIDERS: ATTEND Family Medicine
DX: M81.0 Age-related osteoporosis without current pathological fracture (principal); Z78.0 Asymptomatic menopausal state
CPT/HCPCS: 96372

== ENCOUNTER 2019-01-30 00:06 | Emergency (ER) | payer OTHER ==
[2019-01-30 00:26] VITALS: BP 163/80; TEMP 99.2; BMI 24.0
--- NOTE | 2019-01-30 00:43 | ED.PDOC ---
General ED Provider: Dr. SAPPHIRE MILLER Chief Complaint: Fall Stated Complaint: 88 y old cau female with a complaint of fall and pains in a back,Fall occured 1 qweek ago,She woukd like to check her spine,No neurological deficits,. As a sewcond problem she mentions swollen ankles,She is [facility] for [facility],She is on Xarelto. Time Seen by Physician: 00:15 Mode of Arrival: Wheelchair Information Source: Patient Exam Limitations: No limitations Primary Care Provider: YEIMY ROTH Nursing and Triage Documentation Reviewed and Agree: No Does patient meet sepsis criteria?: No System Inflammatory Response Syndrome: Not Applicable Sepsis Protocol: For patient's 13 years and over: Temp is 96.8 and below OR 101 and greater Pulse >90 BPM Resp >20/minute Acutely Altered Mental Status Are patient's symptoms suggestive of a new infection, such as: -Pneumonia -Skin, Soft Tissue -Endocarditis -UTI -Bone, Joint Infection -Implantable Device -Acute Abdominal Infection -Wound Infection -Meningitis -Blood Stream Catheter Infection -Unknown Musculoskeletal Complaint Exam - Back Pain Complaint/Exam Mechanism of Injury: Reports: Trauma (f) Onset/Duration: one week ago fell Symptoms Are: Still present Timing: Intermittent Episodes Lasting: Hours Initial Severity: Severe Current Severity: Moderate Character: Reports: Unable to describe Aggravating: Reports: None Alleviating: Reports: None Associated Signs and Symptoms: Reports: Swelling, Redness Related History: Reports: Similar episode TAD Risk Factors: Reports: None AAA Risk Factors: Reports: None Cauda Equina Risk Factors: Reports: None Epidural Abcess Risk Factors: Reports: None Focal Tenderness: Yes Paraspinal Muscle Tenderness: Yes Paraspinal Muscle Spasm: No Scoliosis: No Lordosis: No Kyphosis: No Review of Systems - Review Of Systems Constitutional: Reports: No symptoms Eyes: Reports: No symptoms Ears, Nose, Mouth, Throat: Reports: No symptoms Respiratory: Reports: No symptoms Cardiac: Reports: No symptoms GI: Reports: No symptoms : Reports: No symptoms Musculoskeletal: Reports: No symptoms Skin: Reports: No symptoms Neurological: Reports: No symptoms Endocrine: Reports: No symptoms, Unexplained weight gain Hematologic/Lymphatic: Reports: No symptoms All Other Systems: Reviewed and Negative Past Medical History - Past Medical History Previously Healthy: Yes Endocrine: Reports: Hypothyroid Cardiovascular: Reports: Hypertension Respiratory: Reports: COPD Hematological: Reports: None Gastrointestinal: Reports: None Genitourinary: Reports: None Neuro/Psych: Reports: None Musculoskeletal: Reports: Arthritis Cancer: Reports: None Last Menstrual Period: menopausal - Surgical History General Surgical History: Reports: Appendectomy, Cholecystectomy, Orthopedic ( hip replacement in 2015 , Carpal Tunnel both wrist ), Unknown - Family History Family History: Reports: Unknown - Social History Smoking Status: Former smoker Hx Substance Use: No Alcohol Screening: None - Immunizations Tetanus Shot up to Date: Yes Physical Exam - Physical Exam Appearance: Well-appearing, Thin Ill-appearing: Mild Pain Distress: Mild Eyes: BETSEY, EOMI, Conjunctiva clear ENT: Ears normal, Nose normal, Oropharynx normal Neck: Supple Respiratory: Airway patent, Breath sounds clear, Breath sounds equal Cardiovascular: RRR, Tachycardia GI/: Soft, Nontender Musculoskeletal: Normal strength, ROM intact, No edema, No calf tenderness Skin: Warm, Dry Neurological: Sensation intact, Motor intact, Alert, Unresponsive (.) Re-Evaluation - Re-Evaluation Time of Re-Evaluation: 02:56 (one week old acute compression Fx T11) Status: Unchanged Vital Signs Stable: Yes (one week old compressoion Fx T11.) Pain Level: nonfocused pain syndroma in T11 region Appearance: NAD Lungs: Clear Skin: Warm and Dry Neuro: Alert and Oriented X3 CV: RRR Critical Care Note - Critical Care Note Total Time (mins): 0 Course - Course Hematology/Chemistry: 01/30/19 00:58 01/30/19 00:58 Orders, Labs, Meds: Lab Review 01/30/19 01/30/19 01/30/19 00:58 00:58 00:58 WBC 11.23 H RBC 4.02 L Hgb 12.3 Hct 37.9 MCV 94.3 MCH 30.6 MCHC 32.5 RDW Coeff of Lori 12.2 Plt Count 284 Immature Gran % (Auto) 1.6 Neut % (Auto) 68.6 Lymph % (Auto) 19.8 Creek % (Auto) 6.9 Eos % (Auto) 2.7 Baso % (Auto) 0.4 Immature Gran # (Auto) 0.2 Neut # (Auto) 7.7 H Lymph # (Auto) 2.2 Creek # (Auto) 0.8 Eos # (Auto) 0.3 Baso # (Auto) 0.0 D-Dimer (Manual) 1660.52 Sodium 135.3 Potassium 4.57 Chloride 101.1 Carbon Dioxide 24.6 Anion Gap 14.17 BUN 31.3 H Creatinine 1.08 Estimated GFR (MDRD) 48.00 BUN/Creatinine Ratio 28.98 Glucose 109.6 H Calcium 9.91 Total Bilirubin 0.48 AST 29.7 ALT 34.9 Alkaline Phosphatase 95.4 NT-Pro-B Natriuret Pep Total Protein 7.44 Albumin 4.52 Globulin 2.92 Albumin/Globulin Ratio 1.54 Urine Color Urine Clarity Urine pH Ur Specific [place] Urine Protein Urine Glucose (UA) Urine Ketones Urine Blood Urine Nitrite Urine Bilirubin Urine Urobilinogen Ur Leukocyte Esterase Urine Microscopic WBC Ur Squamous Epith Cells Urine Bacteria 01/30/19 01/30/19 00:58 02:10 WBC RBC Hgb Hct MCV MCH MCHC RDW Coeff of Lori Plt Count Immature Gran % (Auto) Neut % (Auto) Lymph % (Auto) Creek % (Auto) Eos % (Auto) Baso % (Auto) Immature Gran # (Auto) Neut # (Auto) Lymph # (Auto) Creek # (Auto) Eos # (Auto) Baso # (Auto) D-Dimer (Manual) Sodium Potassium Chloride Carbon Dioxide Anion Gap BUN Creatinine Estimated GFR (MDRD) BUN/Creatinine Ratio Glucose Calcium Total Bilirubin AST ALT Alkaline Phosphatase NT-Pro-B Natriuret Pep 357.000 H Total Protein Albumin Globulin Albumin/Globulin Ratio Urine Color Yellow Urine Clarity Slightly Urine pH 6.0 Ur Specific [place] <=1.005 Urine Protein Negative Urine Glucose (UA) Negative Urine Ketones Negative Urine Blood Negative Urine Nitrite Positive Urine Bilirubin Negative Urine Urobilinogen 0.2 Ur Leukocyte Esterase Trace Urine Microscopic WBC 5-10 Ur Squamous Epith Cells 2-5 Urine Bacteria 4+ Orders Category Date Time Status NPO REMINDER: IMAGING ONCE CARE 01/30/19 00:57 Completed CBC W/ AUTO DIFF Stat LAB 01/30/19 00:58 Completed COMPREHENSIVE METABOLIC PANEL Stat LAB 01/30/19 00:58 Completed D-DIMER Stat LAB 01/30/19 00:58 Completed PRO-BNP [NT-PROBNP] Stat LAB 01/30/19 00:58 Completed URINALYSIS C & S IF INDICATED Stat LAB 01/30/19 02:06 Ordered URINE CULTURE Stat LAB 01/30/19 02:10 Received CHEST, 2 VIEWS PA & LAT Stat RADS 01/30/19 00:[address] CERVICAL SPINE W/O CONTRAST Stat RADS 01/30/19 00:[address] LUMBAR SPINE W/O CONTRAST Stat RADS 01/30/19 00:[address] THORACIC SPINE W/O CONTRAST Stat RADS 01/30/19 00:54 Taken Vital Signs: Temp Pulse Resp BP Pulse Ox 01/30/19 00:07 99.2 F 52 L 20 163/80 H 95 Departure - Departure Time of Disposition: 02:50 Disposition: HOME SELF-CARE Discharge Problem: Fall Instructions: Fall Prevention for Older Adults (ED) Condition: Good Pt referred to PMD for follow-up: Yes IPMP verified?: No Allergies/Adverse Reactions: Allergies No Known Allergies Allergy (Verified 10/13/17 04:33) Home Medications: Ambulatory Orders Digoxin [Lanoxin] 250 mcg PO DAILY 02/23/14 Metoprolol Tartrate [Lopressor] 50 mg PO BID 02/23/14 Multivitamin 1 cap PO DAILY 02/23/14 Polyethylene Glycol 3350 [Miralax] 17 gm PO BEDTIME 02/23/14 Triamterene/Hydrochlorothiazid [Dyazide] 1 cap PO DAILY 02/23/14 Vits A,C,E/Lutein/Minerals [Vision Vitamins Tablet] 1 tab PO TID 08/16/14 Amlodipine Besylate [Norvasc] 5 mg PO BID 09/20/15 Budesonide/Formoterol Fumarate [Symbicort 160-4.5 Mcg Inhaler] 2 puff IH BID 07/10 Losartan Potassium [Cozaar] 50 mg PO DAILY 07/09/16 Tramadol HCl [Ultram] 50 mg PO QID PRN 10/13/17 Cholecalciferol (Vitamin D3) [Vitamin D] 1,000 unit PO BID 04/17/18 Folic Acid 1 mg PO DAILY 04/17/18 [place]-3S/Dha/Epa/Fish Oil [[place]-3 Fish Oil 1,000 mg Sfgl] 1 each PO TID Rivaroxaban [Xarelto] 20 mg PO QAM 04/17/18 Vitamin E Acetate [Vitamin E] 400 unit PO DAILY 04/17/18 Pramipexole Di-HCl [Mirapex] 0.125 mg PO DAILY #10 tablet 04/29/18 Gabapentin 100 mg PO BEDTIME 08/28/18 Disposition Discussed With: Patient, Family
--- NOTE | 2019-01-30 02:17 | DI ---
EXAM: PA and lateral views of the chest. HISTORY: Fall. FINDINGS: There is a compression fracture in the lower thoracic spine. The cardiac silhouette and pu lmonary vasculature are within normal limits. The costophrenic angles are clear. No infiltrate or c onsolidation. No pneumothorax. Impression: No acute cardiopulmonary disease. Compression fracture in the lower thoracic spine. Please see report from CT thoracic spine of 2018 for further details.
--- NOTE | 2019-01-30 02:22 | CT ---
EXAM: CT of the cervical spine without contrast. HISTORY: Fall. PROCEDURE: Contiguous axial CT images of the cervical spine with coronal and sagittal reformats. FINDINGS: There is 1.5 mm anterolisthesis of C4 on C5. There is normal alignment of the cervical fa cets. The vertebral body heights are maintained. No evidence of fracture. There is multilevel disc space narrowing. There are posterior osteophytes at multiple levels of the cervical spine. There i s multilevel facet arthropathy. The C1-2 relationship is maintained. No prevertebral soft tissue ab normality. Impression: No evidence of fracture. 1.5 mm anterolisthesis of C4 on C5 secondary to facet arthropathy. Multilevel degenerative changes as described.
--- NOTE | 2019-01-30 02:27 | CT ---
EXAM: CT lumbar spine without contrast. HISTORY: Fall. PROCEDURE: Contiguous axial CT images of the lumbar spine without contrast with coronal and sagittal reformats. FINDINGS: There is dextroscoliosis of the lumbar spine. There is 3 mm anterolisthesis of L3 on L4. There is normal alignment of the lumbar facets. The vertebral body heights are maintained. No evide nce of fracture. There is disc space narrowing at L5-S1. There is multilevel vacuum disc phenomenon . There are multilevel disc bulges which are not well visualized by CT. There is multilevel facet a rthropathy. Impression: No evidence of fracture. 3 mm anterolisthesis of L3 on L4 secondary to facet arthropathy. Multilevel disc bulges as described. Degenerative changes as described.
--- NOTE | 2019-01-30 02:31 | CT ---
EXAM: CT of the thoracic spine without contrast. HISTORY: Fall. PROCEDURE: Contiguous axial CT images of the thoracic spine without contrast with multiplanar reform ats. FINDINGS: There is normal alignment of the thoracic vertebral bodies and facets. There is an acute T11 compression fracture with approximately 40% loss of vertebral body height. No retropulsion. The re is multilevel vacuum disc phenomenon. There is multilevel facet arthropathy. Impression: Acute T11 compression fracture as described. Normal alignment of the thoracic spine with degenerative changes as described.
[2019-01-30] MEDS: DILAUDID 0.5 MG/0.5 ML SYRINGE IM STA (03:26)
== END 2019-01-30 03:51 | disposition home or self-care (01) ==
LOC: ED 00:06
DX: S22.080A Wedge compression fracture of T11-T12 vertebra, initial encounter for closed fracture (principal); R00.0 Tachycardia, unspecified; M54.9 Dorsalgia, unspecified; W19.XXXA Unspecified fall, initial encounter; Z79.899 Other long term (current) drug therapy; M79.89 Other specified soft tissue disorders; E03.9 Hypothyroidism, unspecified; I10 Essential (primary) hypertension; J44.9 Chronic obstructive pulmonary disease, unspecified; Z87.19 Personal history of other diseases of the digestive system
CPT/HCPCS: 36415; 80053; 81001; 83880; 85025; 85379; 87086; 87186; 96372; 99283